=== PATIENT | male | born 1960 | race Caucasian/White ===

== ENCOUNTER → 2017-04-27 | Outpatient (CLI) | payer MEDICAID ==
[~2017-04-27] MED LIST: ADULT LOW DOSE81 MG PO; ALBUTEROL0.09 MG/A1 IH; ASPIR-LOW81 MG PO; ATORVASTATIN CA80 MG PO; CARVEDILOL 25MG25 MG PO; CIPRO 500MG TA500 MG PO; CLOPIDOGREL75 MG PO; HYDROCODONE BIT1 T39 PO; HYZAAR1 TAB PO; IMODIUM 2MG. CAP2 MG PO; LIPITOR80 MG PO; LORTAB 7.5/3251 TAB PO; MEDROL 4MG. DOSE4 MG PO; NAPROSYN 500MG500 MG PO; NICOTINE PATCH;21 MG TD; NITROGLYCERIN0.4 M1 SL; NOMEDS XX; NORCO 325 MG-101 TAB PO; NORCO1 TAB PO; PLAVIX75 M1 PO; RANITIDINE HCL150 MG PO; ROBAXIN-750750 MG PO; VOLTAREN75 MG PO; XANAX 0.25MG0.25 MG PO
--- NOTE | 2017-04-27 16:39 | RADIOLOGY REPORT PS360 ---
US [id number] HISTORY: RENAL MASS ORDERING PHYSICIAN: Jose Zimmer MD PATIENT AGE: 57 years COMPARISON: CT scan of 01/04/2017 FINDINGS: RIGHT KIDNEY:Unremarkable. Normal size and echogenicity. No hydronephrosis. 12 x 5 x 8 cm LEFT KIDNEY: 2 separate adjacent cysts are present in the upper pole left kidney measuring 2 and 1 cm corresponding to the [address] abnormalities. No hydronephrosis. No solid lesions evident. Left kidney is 12 x 5 x 6 cm. IMPRESSION: Left renal lesions seen on the CT scan appear to represent simple cysts
== END ==
LOC: RAD 13:00
DX: N28.89 Other specified disorders of kidney and ureter (principal); I25.10 Atherosclerotic heart disease of native coronary artery without angina pectoris; E78.5 Hyperlipidemia, unspecified; I11.9 Hypertensive heart disease without heart failure; I45.2 Bifascicular block; R09.89 Other specified symptoms and signs involving the circulatory and respiratory systems; J44.9 Chronic obstructive pulmonary disease, unspecified; F17.290 Nicotine dependence, other tobacco product, uncomplicated

== ENCOUNTER → 2017-06-15 | Outpatient (CLI) | payer MEDICAID ==
[~2017-06-15] MED LIST changes: +PLAVIX75 M1
[2017-06-15 18:24] LABS: AMPHETAMINES/METAMPHETAMINES NEGATIVE ng/mL (<1000)
== END ==
LOC: LAB 16:40
PROVIDERS: Emergency Medicine
DX: Z79.899 Other long term (current) drug therapy (principal)

== ENCOUNTER → 2017-07-16 | Outpatient (CLI) | payer MEDICAID ==
[2017-07-16 22:07] LABS: AMPHETAMINES/METAMPHETAMINES NEGATIVE ng/mL (<1000)
== END ==
LOC: LAB 18:01
PROVIDERS: Emergency Medicine
DX: Z79.899 Other long term (current) drug therapy (principal)